=== PATIENT | male | born 1955 | race Caucasian/White ===

== ENCOUNTER 2017-01-19 20:26 | Emergency (ER) | payer OTHER ==
[2017-01-19] MEDS ORDERED: Sodium Chloride 0.9% 1000 ML 1,000 ML IV SCH (21:15)
--- NOTE | 2017-01-19 21:18 | ERPHSYRPT ---
- History of Present Illness Time Seen by Provider: 01/19/17 21:00 Source: patient Exam Limitations: clinical condition Patient Subjective Stated Complaint: pt states he has been having palpitations for approx 3-4 hours. denies chest pain, states he did have some pain in his lt neck and wrist- states pain was similar to when he had his heart attack in 2014 Triage Nursing Assessment: pt alert and oriented, asnswers questions approp. respirations nonlabored with lungs cta. pt ambulatory with steady gait noted. heart rate 65 sinus arrhythmia on monitor. Physician History: PATIENT WITH A HISTORY OF HYPERTENSION, ASTHMA AND ARRHYTHMIA, COMPLAINS OF PALPITATIONS TODAY. DENIES DIZZINESS, DYSPNEA, OR CHEST PAIN. HAS HAD A RECENT HOILTER MONITOR FOR 28 DAY. Timing/Duration: today Activities at Onset: none Quality: other (DENIES PAIN) Chest Pain Radiation: no radiation Severity of Pain-Max: none Severity of Pain-Current: none Modifying Factors: Improves With: nothing Nitro Today/Relief: no nitro taken today Aspirin Treatment Today: no aspirin today Associated Symptoms: denies symptoms Prior Chest Pain/Cardiac Workup: cardiac cath Allergies/Adverse Reactions: No Known Drug Allergies Allergy (Verified 01/19/17 20:48) Home Medications: Budesonide/Formoterol Fumarate [Symbicort 160-4.5 Mcg Inhaler] 01/19/17 [ History] Isosorbide Mononitrate 30 mg [Imdur 30 MG] 30 mg PO DAILY 01/19/17 [History ] Lisinopril 5 mg [Zestril 5 MG] 2.5 mg PO DAILY 01/19/17 [History] Lorazepam 2 mg PO HS PRN PRN 01/19/17 [History] Rosuvastatin Calcium 5 mg PO DAILY 01/19/17 [History] Hx Tetanus, Diphtheria Vaccination/Date Given: Yes Hx Influenza Vaccination/Date Given: No Hx Pneumococcal Vaccination/Date Given: No Immunizations Up to Date: Yes - Review of Systems Constitutional: No Fever, No Chills Eyes: No Symptoms Ears, Nose, & Throat: No Symptoms Respiratory: No Symptoms, No Cough, No Dyspnea Cardiac: Palpitations, No Chest Pain, No Edema, No Syncope Abdominal/Gastrointestinal: No Abdominal Pain, No Nausea, No Vomiting, No Diarrhea Genitourinary Symptoms: No Symptoms, No Dysuria Musculoskeletal: No Symptoms, No Back Pain, No Neck Pain Skin: No Symptoms, No Rash Neurological: No Dizziness, No Focal Weakness, No Sensory Changes Psychological: No Symptoms Endocrine: No Symptoms All Other Systems: Reviewed and Negative - Past Medical History Pertinent Past Medical History: Yes Neurological History: No Pertinent History ENT History: No Pertinent History Cardiac History: Coronary Artery Disease, Myocardial Infarction ([place]) Respiratory History: No Pertinent History Endocrine Medical History: No Pertinent History Musculoskeletal History: Arthritis GI Medical History: No Pertinent History History: No Pertinent History Psycho-Social History: No Pertinent History Male Reproductive Disorders: No Pertinent History - Past Surgical History Past Surgical History: Yes Neuro Surgical History: No Pertinent History Cardiac: Cardiac Catheterization Respiratory: No Pertinent History Gastrointestinal: No Pertinent History Genitourinary: No Pertinent History Musculoskeletal: No Pertinent History Other Surgical History: NOSE SURGERY,. heart cath, no stents - Social History Smoking Status: Current every day smoker How long have you smoked: 40 YEARS Exposure to second hand smoke: Yes Drug Use: none Patient Lives Alone: No - Nursing Vital Signs Nursing Vital Signs: Initial Vital Signs Temperature 97.9 F Temperature Source Oral Pulse Rate [] 66 Pulse Rate 59 Respiratory Rate 24 Blood Pressure [] 142/77 Pain Intensity 0 - Physical Exam SpO2: 97 Oxygen Delivery: Room Air - Course EKG Interpreted by Me: RATE, Sinus Rhythm, NORMAL AXIS - Radiology Exams Chest X-ray Interpretation: Interpreted by me (MILD CARDIOMEGALY) Ordered Tests: Active Orders 24 hr Category Date Time Status Oxygen-ED Only NASAL CANNULA 2 lpm Care 01/19/17 21:11 Active CHEST 1 VIEW (PORTABLE) Stat Exams 01/19/17 21:12 Taken CBC W DIFF Stat Lab 01/19/17 21:00 Completed CMP Stat Lab 01/19/17 21:00 Completed MAGNESIUM Stat Lab 01/19/17 21:00 Completed PROTIME WITH INR Stat Lab 01/19/17 21:00 Completed TROPONIN Q3H Lab 01/19/17 21:00 Completed TROPONIN Q3H Lab 01/20/17 00:15 Ordered TROPONIN Q3H Lab 01/20/17 03:15 Ordered TROPONIN Q3H Lab 01/20/17 06:15 Ordered TROPONIN Q3H Lab 01/20/17 09:15 Ordered Holter Monitor ONCE RT 01/19/17 23:07 Active Medication Summary Generic Name Dose Route Start Last Admin Trade Name Freq PRN Reason Stop Dose Admin Sodium Chloride 1,000 mls @ 100 mls/hr 01/19/17 21:15 01/19/17 21:21 Sodium Chloride 0.9% 1000 Ml IV 02/18/17 21:14 100 mls/hr .Q10H PRISCILLA Administration Lab/Rad Data: Laboratory Result Diagrams 01/19/17 21:00 01/19/17 21:00 Laboratory Results 01/19/17 01/19/17 01/19/17 Range/Units 21:00 21:00 21:00 WBC (4.0-10.5) K/mm3 RBC (4.1-5.6) M/mm3 Hgb (12.5-18.0) gm/dl Hct (42-50) % MCV (78-100) fl MCH (26-32) pg MCHC (32-36) g/dl RDW (11.5-14.0) % Plt Count (150-450) K/mm3 MPV (6-9.5) fl Gran % (36.0-66.0) % Lymphocytes % (24.0-44.0) % Monocytes % (0.0-12.0) % Eosinophils % (0.00-5.0) % Basophils % (0.0-0.4) % Basophils # (0-0.4) INR 0.93 (0.8-3.0) Sodium (136-145) mEq/L Potassium (3.5-5.1) mEq/L Chloride (98-107) mEq/L Carbon Dioxide (21-32) mEq/L Anion Gap (5-15) MEQ/L BUN (9-20) mg/dL Creatinine (0.55-1.30) mg/dl Estimated GFR ML/MIN Glucose (70-110) MG/DL Calcium (8.5-10.1) mg/dL Magnesium 2.0 (1.8-2.4) mg/dL Total Bilirubin (0.2-1.0) mg/dL AST (15-37) U/L ALT (12-78) U/L Alkaline Phosphatase (46-116) U/L Troponin I < 0.017 (0.000-0.056) ng/ml Serum Total Protein (6.4-8.2) gm/dL Albumin (3.4-5.0) g/dL 01/19/17 01/19/17 Range/Units 21:00 21:00 WBC 7.4 (4.0-10.5) K/mm3 RBC 4.37 (4.1-5.6) M/mm3 Hgb 13.4 (12.5-18.0) gm/dl Hct 39.6 L (42-50) % MCV 90.6 (78-100) fl MCH 30.7 (26-32) pg MCHC 33.8 (32-36) g/dl RDW 13.8 (11.5-14.0) % Plt Count 256 (150-450) K/mm3 MPV 9.8 H (6-9.5) fl Gran % 36.0 (36.0-66.0) % Lymphocytes % 53.6 H (24.0-44.0) % Monocytes % 7.6 (0.0-12.0) % Eosinophils % 2.0 (0.00-5.0) % Basophils % 0.8 (0.0-0.4) % Basophils # 0.06 (0-0.4) INR (0.8-3.0) Sodium 140 (136-145) mEq/L Potassium 3.7 (3.5-5.1) mEq/L Chloride 104 (98-107) mEq/L Carbon Dioxide 26.5 (21-32) mEq/L Anion Gap 13.0 (5-15) MEQ/L BUN 11 (9-20) mg/dL Creatinine 1.22 (0.55-1.30) mg/dl Estimated GFR > 60 ML/MIN Glucose 108 (70-110) MG/DL Calcium 9.3 (8.5-10.1) mg/dL Magnesium (1.8-2.4) mg/dL Total Bilirubin 0.30 (0.2-1.0) mg/dL AST 12 L (15-37) U/L ALT 18 (12-78) U/L Alkaline Phosphatase 98 (46-116) U/L Troponin I (0.000-0.056) ng/ml Serum Total Protein 6.6 (6.4-8.2) gm/dL Albumin 3.8 (3.4-5.0) g/dL - Progress Progress Note: 01/19/17 22:20 THERE WAS NO EVIDENCE OF ECTOPY ON MONITOR 01/20/17 00:00PATIENT IS BEING PLACED WITH 48HOURS HOILTER MONITOR Counseled pt/family regarding: lab results, diagnosis, need for follow-up - Departure Time of Disposition: 23:58 Departure Disposition: Home Clinical Impression: PALPITATIONS Condition: Stable Critical Care Time: No Critical Care Time(excluding separately billable procedures): 30-74 minutes Referrals: SKY PADGETT MD [Primary Care Provider] - Additional Instructions: MAINTAIN HOILTER MONITOR FOR 48 HOURS THEN RETURN TO RESPIRATORY THERAPY DEPARTMENT. CONSULT YOUR HUMAN RESOURCES FILE CLERK TOMORROW FOR APPOINTMENT.
[2017-01-19] MEDS ORDERED: Sodium Chloride 0.9% 1000 ML 1,000 ML ONE (21:20)
[2017-01-19 21:22] LABS: BASOPHIL % 0.8 % (0.0-0.4); Lymphocytes % 53.6 % (24.0-44.0); Mean Cell Volume 90.6 fl (78-100); Mean Corpuscular Hemoglobin 30.7 pg (26-32); Mean Platelet Volume 9.8 fl (6-9.5); Monocytes % 7.6 % (0.0-12.0); Platelet Count 256 K/mm3 (150-450); Red Blood Count 4.37 M/mm3 (4.1-5.6); Red Cell Distribution Width 13.8 % (11.5-14.0); White Blood Count 7.4 K/mm3 (4.0-10.5)
[2017-01-19 21:37] LABS: INR 0.93 (0.8-3.0); PROTIME 10.5 SECONDS (8.83-12.87)
[2017-01-19 21:52] LABS: ALBUMIN 3.8 g/dL (3.4-5.0); ALKALINE PHOSPHATASE 98 U/L (46-116); BLOOD UREA NITROGEN 11 mg/dL (9-20); CHLORIDE 104 mEq/L (98-107); Carbon Dioxide 26.5 mEq/L (21-32); Glucose 108 MG/DL (70-110); Potassium 3.7 mEq/L (3.5-5.1); SGOT/AST 12 U/L (15-37); SGPT/ALT 18 U/L (12-78); SODIUM 140 mEq/L (136-145); Total Protein 6.6 gm/dL (6.4-8.2)
[2017-01-20 00:01] VITALS: O2SAT 97
[2017-01-20 00:08] VITALS: BP 149/79; PULSE 60
--- NOTE | 2017-01-20 09:48 | XRAY ---
Indication: Palpitations. Comparison: February 20, 2016. Portable chest again demonstrates normal heart and lungs. Bony thorax intact again with degenerative changes.
--- NOTE | 2017-01-23 15:36 | HOLTER ---
DATE OF STUDY: 01/20/2017 STUDY PERFORMED: 24 hour Holter monitor. INDICATION: Palpitation. The basic rhythm is normal sinus rhythm with heart rates varying from 36 to 148 beats/minute with average heart rate 62. There were frequent PVC's. This shows mostly unifocal and monomorphic. There were occasional PAC's. There were some short runs of paroxysmal atrial tachycardia. There were also 11 episodes of pauses the longest lasting about 2.4 seconds. There was no sustained tachyarrhythmia.
== END 2017-01-20 00:08 | disposition home or self-care (01) ==
LOC: ED 20:26
DX: R00.2 Palpitations (principal); I10 Essential (primary) hypertension; I25.10 Atherosclerotic heart disease of native coronary artery without angina pectoris; I25.2 Old myocardial infarction; Z79.899 Other long term (current) drug therapy
CPT/HCPCS: 36000; 36415; 71010; 80053; 83735; 84484; 85025; 85610; 93225; 96360; 96361; 99284

== ENCOUNTER 2020-01-06 10:02 | Emergency (ER) | payer MEDICARE, OTHER ==
[2020-01-06 10:51] LABS: Absolute Neutrophil Ct (ANC) 3.31 (1.4-6.9); BASOPHIL % 0.6 % (0.0-0.4); Basophil (Absolute #) 0.04 (0-0.4); Eosinophil % 1.1 % (0.00-5.0); Eosinophil (Absolute #) 0.07 (0-0.5); Hematocrit 41.4 % (42-50); Hemoglobin 13.7 gm/dl (12.5-18.0); Lymphocyte (Absolute #) 2.42 (1.0-4.6); Lymphocytes % 38.7 % (24.0-44.0); Mean Cell Volume 94.3 fl (78-100); Mean Corpuscular Hemoglobin 31.2 pg (26-32); Mean Corpuscular Hgb Concent. 33.1 g/dl (32-36); Mean Platelet Volume 9.4 fl (7.5-11.0); Monocyte (Absolute #) 0.42 (0.0-1.3); Monocytes % 6.7 % (0.0-12.0); Neutrophil % 52.9 % (36.0-66.0); Platelet Count 259 K/mm3 (150-450); Red Blood Count 4.39 M/mm3 (4.1-5.6); White Blood Count 6.3 K/mm3 (4.0-10.5)
[2020-01-06 10:56] LABS: ALBUMIN 4.4 g/dL (3.5-5.0); ALKALINE PHOSPHATASE 74 U/L (38-126); ANION GAP 11.7 MEQ/L (5-15); BLOOD UREA NITROGEN 15 mg/dL (9-20); CHLORIDE 108 mmol/L (98-107); Calcium 9.4 mg/dL (8.4-10.2); Carbon Dioxide 23 mmol/L (22-30); Creatinine 1 1.07 mg/dL (0.66-1.25); Glucose 112 mg/dL (74-106); MAGNESIUM 2.1 mg/dL (1.6-2.3); Potassium 4.3 mmol/L (3.5-5.1); SGOT/AST 16 U/L (17-59); SGPT/ALT 13 U/L (0-50); SODIUM 138 mmol/L (137-145); Total Protein 7.1 g/dL (6.3-8.2)
[2020-01-06 11:12] VITALS: BP 124/73; PULSE 72; O2SAT 97
--- NOTE | 2020-01-06 13:19 | ERPHSYRPT ---
- History of Present Illness Time Seen by Provider: 01/06/20 10:15 Historian: patient Exam Limitations: no limitations Patient Subjective Stated Complaint: palpitations Triage Nursing Assessment: pt to ED c/o palpitations x 1-2 weeks intermittently. pt denies CP or SOB at this time. no NVD. heart sounds clear and regular. lung sounds clear. pt has pacemaker and states "It just feels like my heart skips a beat." Physician History: She complains of palpitations for 2 weeks he has seen his soft hat binder he was told that he was having PVCs. He denies any pain although he does occasionally get lightheaded. He has a pacemaker in place. Timing/Duration: week(s) (2) Activities at Onset: none Chest Pain Radiation: no radiation Severity of Pain-Max: none Severity of Pain-Current: none Modifying Factors: Improves With: nothing Nitro Today/Relief: no nitro taken today Aspirin Treatment Today: no aspirin today Allergies/Adverse Reactions: No Known Drug Allergies Allergy (Verified 01/19/17 20:48) Home Medications: Budesonide/Formoterol Fumarate [Symbicort 160-4.5 Mcg Inhaler] 01/19/17 [History] Isosorbide Mononitrate 30 mg [Imdur 30 MG] 30 mg PO DAILY 01/19/17 [History] Lisinopril 5 mg [Zestril 5 MG] 2.5 mg PO DAILY 01/19/17 [History] Lorazepam 2 mg PO HS PRN PRN 01/19/17 [History] Rosuvastatin Calcium 5 mg PO DAILY 01/19/17 [History] Hx Tetanus, Diphtheria Vaccination/Date Given: No Hx Influenza Vaccination/Date Given: Yes Hx Pneumococcal Vaccination/Date Given: No Travel Risk - International Travel Have you traveled outside of the country in past 3 weeks: No - Coronavirus Screening Are you exhibiting any of the following symptoms?: No Close contact with a COVID-19 positive Pt in past 14-21 Days: No - Review of Systems Constitutional: No Fever, No Chills Eyes: No Symptoms Ears, Nose, & Throat: No Symptoms Respiratory: No Cough, No Dyspnea Cardiac: Palpitations, No Chest Pain, No Edema, No Syncope Abdominal/Gastrointestinal: No Abdominal Pain, No Nausea, No Vomiting, No Diarrhea Genitourinary Symptoms: No Dysuria Musculoskeletal: No Back Pain, No Neck Pain Skin: No Rash Neurological: No Dizziness, No Focal Weakness, No Sensory Changes Psychological: No Symptoms Endocrine: No Symptoms All Other Systems: Reviewed and Negative - Past Medical History Pertinent Past Medical History: Yes Neurological History: No Pertinent History ENT History: No Pertinent History Cardiac History: Coronary Artery Disease, Hypertension, Myocardial Infarction ([place]) Respiratory History: No Pertinent History Endocrine Medical History: No Pertinent History Musculoskeletal History: Arthritis GI Medical History: No Pertinent History History: No Pertinent History Psycho-Social History: No Pertinent History Male Reproductive Disorders: No Pertinent History Other Medical History: pacemaker, 2 blockages in heart - Past Surgical History Past Surgical History: Yes Neuro Surgical History: No Pertinent History Cardiac: Cardiac Catheterization Respiratory: No Pertinent History Gastrointestinal: No Pertinent History Genitourinary: No Pertinent History Musculoskeletal: No Pertinent History Other Surgical History: NOSE SURGERY,. heart cath, no stents - Social History Smoking Status: Current every day smoker How long have you smoked: 40 YEARS Exposure to second hand smoke: Yes Drug Use: none Patient Lives Alone: No - Nursing Vital Signs Nursing Vital Signs: Initial Vital Signs Temperature 98.5 F 01/06/20 10:04 Pulse Rate 70 01/06/20 10:04 Respiratory Rate 16 01/06/20 10:04 Blood Pressure 166/87 01/06/20 10:04 O2 Sat by Pulse Oximetry 100 01/06/20 10:04 Pain Scale Pain Intensity 0 - Physical Exam General Appearance: no apparent distress, alert Eye Exam: PERRL/EOMI, eyes nml inspection Ears, Nose, Throat Exam: normal ENT inspection, moist mucous membranes Neck Exam: normal inspection, non-tender, supple, full range of motion Respiratory Exam: normal breath sounds, lungs clear, No respiratory distress Cardiovascular Exam: normal heart sounds, irregular Gastrointestinal/Abdomen Exam: soft, No tenderness, No mass Back Exam: normal inspection, No CVA tenderness, No vertebral tenderness Extremity Exam: normal inspection, normal range of motion Neurologic Exam: alert, oriented x 3, cooperative, normal mood/affect, sensation nml, No motor deficits Skin Exam: normal color, warm, dry SpO2: 97 - Course Nursing assessment & vital signs reviewed: Yes EKG Interpreted by Me: RATE Ordered Tests: Active Orders 24 hr Category Date Time Status CBC W DIFF Stat Lab 07/03/20 10:30 Completed CMP Stat Lab 01/06/20 10:30 Completed Lactic Acid Stat Lab 01/06/20 10:59 Completed MAGNESIUM Stat Lab 01/06/20 10:30 Completed TROPONIN Q3H Lab 01/06/20 10:30 Completed Lab/Rad Data: Laboratory Result Diagrams 01/06/20 10:30 01/06/20 10:30 Laboratory Results 01/06/20 01/06/20 01/06/20 Range/Units 10:59 10:30 10:30 WBC (4.0-10.5) K/mm3 RBC (4.1-5.6) M/mm3 Hgb (12.5-18.0) gm/dl Hct (42-50) % MCV (78-100) fl MCH (26-32) pg MCHC (32-36) g/dl RDW (11.5-14.0) % Plt Count (150-450) K/mm3 MPV (7.5-11.0) fl Gran % (36.0-66.0) % Eos # (Auto) (0-0.5) Absolute Lymphs (auto) (1.0-4.6) Absolute Monos (auto) (0.0-1.3) Lymphocytes % (24.0-44.0) % Monocytes % (0.0-12.0) % Eosinophils % (0.00-5.0) % Basophils % (0.0-0.4) % Absolute Granulocytes (1.4-6.9) Basophils # (0-0.4) Sodium 138 (137-145) mmol/L Potassium 4.3 (3.5-5.1) mmol/L Chloride 108 H (98-107) mmol/L Carbon Dioxide 23 (22-30) mmol/L Anion Gap 11.7 (5-15) MEQ/L BUN 15 (9-20) mg/dL Creatinine 1.07 (0.66-1.25) mg/dL Estimated GFR > 60.0 ML/MIN Glucose 112 H (74-106) mg/dL Lactic Acid 1.1 (0.4-2.0) Calcium 9.4 (8.4-10.2) mg/dL Magnesium 2.1 (1.6-2.3) mg/dL Total Bilirubin 0.80 (0.2-1.3) mg/dL AST 16 L (17-59) U/L ALT 13 (0-50) U/L Alkaline Phosphatase 74 (38-126) U/L Troponin I < 0.012 (0.000-0.034) ng/mL Serum Total Protein 7.1 (6.3-8.2) g/dL Albumin 4.4 (3.5-5.0) g/dL 01/06/20 Range/Units 10:30 WBC 6.3 (4.0-10.5) K/mm3 RBC 4.39 (4.1-5.6) M/mm3 Hgb 13.7 (12.5-18.0) gm/dl Hct 41.4 L (42-50) % MCV 94.3 (78-100) fl MCH 31.2 (26-32) pg MCHC 33.1 (32-36) g/dl RDW 13.0 (11.5-14.0) % Plt Count 259 (150-450) K/mm3 MPV 9.4 (7.5-11.0) fl Gran % 52.9 (36.0-66.0) % Eos # (Auto) 0.07 (0-0.5) Absolute Lymphs (auto) 2.42 (1.0-4.6) Absolute Monos (auto) 0.42 (0.0-1.3) Lymphocytes % 38.7 (24.0-44.0) % Monocytes % 6.7 (0.0-12.0) % Eosinophils % 1.1 (0.00-5.0) % Basophils % 0.6 (0.0-0.4) % Absolute Granulocytes 3.31 (1.4-6.9) Basophils # 0.04 (0-0.4) Sodium (137-145) mmol/L Potassium (3.5-5.1) mmol/L Chloride (98-107) mmol/L Carbon Dioxide (22-30) mmol/L Anion Gap (5-15) MEQ/L BUN (9-20) mg/dL Creatinine (0.66-1.25) mg/dL Estimated GFR ML/MIN Glucose (74-106) mg/dL Lactic Acid (0.4-2.0) Calcium (8.4-10.2) mg/dL Magnesium (1.6-2.3) mg/dL Total Bilirubin (0.2-1.3) mg/dL AST (17-59) U/L ALT (0-50) U/L Alkaline Phosphatase (38-126) U/L Troponin I (0.000-0.034) ng/mL Serum Total Protein (6.3-8.2) g/dL Albumin (3.5-5.0) g/dL - Departure Departure Disposition: Home Clinical Impression: Ventricular ectopy Condition: Stable Critical Care Time: No Referrals: SKY PADGETT MD [Primary Care Provider] - Instructions: Arrhythmias (DC)
== END 2020-01-06 14:07 | disposition home or self-care (01) ==
LOC: ED 10:02
DX: I49.3 Ventricular premature depolarization (principal); Z95.0 Presence of cardiac pacemaker; I25.10 Atherosclerotic heart disease of native coronary artery without angina pectoris; I10 Essential (primary) hypertension; I25.2 Old myocardial infarction; M19.90 Unspecified osteoarthritis, unspecified site
CPT/HCPCS: 36415; 80053; 83605; 83735; 84484; 85025; 99283

== ENCOUNTER 2025-04-10 10:10 | Emergency (ER) | payer MEDICARE, OTHER ==
[2025-04-10 10:15] VITALS: TEMP 97.8
--- NOTE | 2025-04-10 10:23 | ERPHSYRPT ---
- History of Present Illness Time Seen by Provider: 04/10/25 10:21 Historian: patient Exam Limitations: no limitations Physician History: Patient presents with a 2-day history of left-sided chest pain that radiates to the center of his chest. Sharp stabbing intermittent pain that is not on exertional. He denies shortness of breath, diaphoresis, nausea, vomiting, abdominal pain or swelling with the pain. He has a pacemaker for sick sinus syndrome. He does endorse smoking and has history of high blood pressure. Nitro Today/Relief: 0.4 mg x 1, provided by ED Aspirin Treatment Today: 81 mg x 4, provided at home Allergies/Adverse Reactions: No Known Drug Allergies Allergy (Verified 02/24/25 06:02) Home Medications: Budesonide/Formoterol Fumarate [Symbicort 160-4.5 Mcg Inhaler] 2 puff PO BID 01/19/17 [History] LORazepam [Lorazepam] 2 mg PO HS PRN PRN 01/19/17 [History] Rosuvastatin Calcium 5 mg PO DAILY 01/19/17 [History] Amlodipine Besylate 5 mg [Norvasc 5 mg] 1 tab PO DAILY 02/01/25 [History] Aspirin EC 81 mg [Ecotrin 81 mg] 1 tab PO DAILY 02/01/25 [History] Losartan Potassium 50 mg [Cozaar 50 MG] 1 tab PO DAILY 02/01/25 [History] Metoprolol Tartrate 100 mg PO BID 02/01/25 [History] Hx Tetanus, Diphtheria Vaccination/Date Given: No Hx Influenza Vaccination/Date Given: Yes Hx Pneumococcal Vaccination/Date Given: No Travel Risk - Emerging Infectious Disease Are you exhibiting symptoms associated with any current EIDs: No - Review of Systems All Other Systems: Reviewed and Negative - Past Medical History Pertinent Past Medical History: Yes Neurological History: No Pertinent History ENT History: No Pertinent History Cardiac History: Coronary Artery Disease, Hypertension, Myocardial Infarction ([place]) Respiratory History: No Pertinent History Endocrine Medical History: No Pertinent History Musculoskeletal History: Arthritis GI Medical History: No Pertinent History History: No Pertinent History Psycho-Social History: No Pertinent History Male Reproductive Disorders: No Pertinent History Other Medical History: pacemaker, 2 blockages in heart - Past Surgical History Cardiac: Cardiac Catheterization - Social History Drug Use: none - Nursing Vital Signs Nursing Vital Signs: Initial Vital Signs Temperature 97.8 F 04/10/25 10:11 Pulse Rate 71 04/10/25 10:11 Respiratory Rate 18 04/10/25 10:11 Blood Pressure 150/129 04/10/25 10:11 O2 Sat by Pulse Oximetry 100 04/10/25 10:11 Pain Scale Pain Intensity 4 - Physical Exam General Appearance: no apparent distress Ears, Nose, Throat Exam: normal ENT inspection Neck Exam: normal inspection, supple, full range of motion Respiratory Exam: normal breath sounds, chest tenderness (left chest wll), lungs clear, airway intact, No respiratory distress Cardiovascular Exam: regular rate/rhythm, normal heart sounds, capillary refill <2 sec, No edema Gastrointestinal/Abdomen Exam: soft, No tenderness, No distention, No guarding, No rebound Neurologic Exam: alert, oriented x 3, cooperative Skin Exam: normal color, warm, dry, No rash SpO2 Interpretation: normal SpO2: 100 O2 Delivery: Room Air - Course Nursing assessment & vital signs reviewed: Yes EKG Interpreted by Me: RATE (75), NORMAL AXIS, NORMAL ST-T, Other (atrial paced, DE 294) Ordered Tests: Active Orders 24 hr Category Date Time Status Criminal Justice Department Chair STAT Care 04/10/25 10:24 Active EKG-ER Only STAT Care 04/10/25 10:24 Active IV Insertion STAT Care 04/10/25 10:24 Active CTA CHEST W AND/OR WO [CT] Stat Exams 04/10/25 10:29 Completed CBC W DIFF Stat Lab 04/10/25 10:30 Completed CMP Stat Lab 04/10/25 10:30 Completed MAGNESIUM Stat Lab 04/10/25 10:30 Completed PROCALCITONIN Stat Lab 04/10/25 10:30 Completed TROPONIN Q4H Lab 04/10/25 10:30 Completed TROPONIN Stat Lab 04/10/25 13:20 Completed TSH, 3RD Generation Stat Lab 04/10/25 10:30 Completed Urine Triage Profile Stat Lab 04/10/25 11:31 Completed Medication Summary Discontinued Medications Generic Name Dose Route Start Last Admin Trade Name Freq PRN Reason Stop Dose Admin Esmolol HCl 20 mg 04/10/25 10:35 04/10/25 14:00 Esmolol Hcl 10 Mg/Ml Vial IV 04/10/25 10:36 Not Given STAT ONE Metoprolol Tartrate 2.5 mg 04/10/25 10:30 04/10/25 10:32 Metoprolol Tartrate 5 Mg/5 Ml Vial IV 04/10/25 10:31 Not Given STAT ONE Nitroglycerin 0.4 mg 04/10/25 10:24 04/10/25 10:32 Nitroglycerin 0.4 Mg (Ed) 0.4 Mg Tab.Subl SL 04/10/25 10:25 Not Given STAT ONE Lab/Rad Data: Laboratory Result Diagrams 04/10/25 10:30 04/10/25 10:30 Laboratory Results 04/10/25 04/10/25 04/10/25 Range/Units 13:20 11:31 10:30 WBC (4.23-9.07) x10^3/uL RBC (4.63-6.08) x10^6/uL Hgb (13.7-17.5) g/dL Hct (40.1-51.0) % MCV (79.0-92.2) fL MCH (25.7-32.2) pg MCHC (32.3-36.5) g/dL RDW (11.6-14.4) % Plt Count (163-337) x10^3/uL MPV (9.4-12.4) fL Gran % (34.0-67.9) % Immature Gran % (Auto) (0.001-0.429) % Nucleat RBC Rel Count (0.00-0.2) % Eos # (Auto) (0.04-0.54) x10^3/uL Immature Gran # (Auto) (0.001-0.031) x10^3u/L Absolute Lymphs (auto) (1.32-3.57) x10^3/uL Absolute Monos (auto) (0.30-0.82) x10^3/uL Absolute Nucleated RBC (0.00-0.012) x10^3u/L Lymphocytes % (21.8-53.1) % Monocytes % (5.3-12.2) % Eosinophils % (0.8-7.0) % Basophils % (0.2-1.2) % Absolute Granulocytes (1.78-5.38) x10^3/uL Basophils # (0.01-0.08) x10^3/uL Sodium (135-145) mmol/L Potassium (3.5-5.1) mmol/L Chloride (98-107) mmol/L Carbon Dioxide (22-30) mmol/L Anion Gap (5-15) MEQ/L BUN (9-20) mg/dL Creatinine (0.66-1.25) mg/dL Estimated GFR ML/MIN Glucose (74-106) mg/dL Calcium (8.4-10.2) mg/dL Magnesium (1.6-2.3) mg/dL Total Bilirubin (0.2-1.3) mg/dL AST (17-59) U/L ALT (0-50) U/L Alkaline Phosphatase (38-126) U/L Troponin I < 0.012 (0.000-0.033) ng/mL Serum Total Protein (6.3-8.2) g/dL Albumin (3.5-5.0) g/dL Procalcitonin (0.030-0.080) ng/mL Free T4 1.22 (0.78-2.19) ng/dL TSH 3rd Generation (0.470-4.680) mIU/L Urine Opiates Level NEGATIVE (NEGATIVE) Ur Methadone NEGATIVE (NEGATIVE) Urine Barbiturates NEGATIVE (NEGATIVE) Ur Phencyclidine (PCP) NEGATIVE (NEGATIVE) Urine Amphetamine NEGATIVE (NEGATIVE) U Benzodiazepine Level NEGATIVE (NEGATIVE) Urine Cocaine NEGATIVE (NEGATIVE) Urine Marijuana (THC) NEGATIVE (NEGATIVE) 04/10/25 04/10/25 04/10/25 Range/Units 10:30 10:30 10:30 WBC 7.0 (4.23-9.07) x10^3/uL RBC 4.79 (4.63-6.08) x10^6/uL Hgb 14.9 (13.7-17.5) g/dL Hct 44.3 (40.1-51.0) % MCV 92.5 H (79.0-92.2) fL MCH 31.1 (25.7-32.2) pg MCHC 33.6 (32.3-36.5) g/dL RDW 12.9 (11.6-14.4) % Plt Count 242 (163-337) x10^3/uL MPV 8.9 L (9.4-12.4) fL Gran % 51.2 (34.0-67.9) % Immature Gran % (Auto) 0.3 (0.001-0.429) % Nucleat RBC Rel Count 0.0 (0.00-0.2) % Eos # (Auto) 0.05 (0.04-0.54) x10^3/uL Immature Gran # (Auto) 0.02 (0.001-0.031) x10^3u/L Absolute Lymphs (auto) 2.72 (1.32-3.57) x10^3/uL Absolute Monos (auto) 0.57 (0.30-0.82) x10^3/uL Absolute Nucleated RBC 0.00 (0.00-0.012) x10^3u/L Lymphocytes % 38.6 (21.8-53.1) % Monocytes % 8.1 (5.3-12.2) % Eosinophils % 0.7 L (0.8-7.0) % Basophils % 1.1 (0.2-1.2) % Absolute Granulocytes 3.60 (1.78-5.38) x10^3/uL Basophils # 0.08 (0.01-0.08) x10^3/uL Sodium 134 L (135-145) mmol/L Potassium 4.2 (3.5-5.1) mmol/L Chloride 103 (98-107) mmol/L Carbon Dioxide 23 (22-30) mmol/L Anion Gap 11.7 (5-15) MEQ/L BUN 17 (9-20) mg/dL Creatinine 1.10 (0.66-1.25) mg/dL Estimated GFR 71.8 ML/MIN Glucose 96 (74-106) mg/dL Calcium 9.5 (8.4-10.2) mg/dL Magnesium 2.2 (1.6-2.3) mg/dL Total Bilirubin 0.80 (0.2-1.3) mg/dL AST 23 (17-59) U/L ALT 17 (0-50) U/L Alkaline Phosphatase 93 (38-126) U/L Troponin I < 0.012 (0.000-0.033) ng/mL Serum Total Protein 7.3 (6.3-8.2) g/dL Albumin 4.6 (3.5-5.0) g/dL Procalcitonin 0.047 (0.030-0.080) ng/mL Free T4 (0.78-2.19) ng/dL TSH 3rd Generation 1.419 (0.470-4.680) mIU/L Urine Opiates Level (NEGATIVE) Ur Methadone (NEGATIVE) Urine Barbiturates (NEGATIVE) Ur Phencyclidine (PCP) (NEGATIVE) Urine Amphetamine (NEGATIVE) U Benzodiazepine Level (NEGATIVE) Urine Cocaine (NEGATIVE) Urine Marijuana (THC) (NEGATIVE) - Progress Progress: improved Air Movement: good Progress Note: This patient presents with chest pain, with symptoms suggestive of noncardiac chest pain. History without high risk features (e.g., not substernal, no exertional component, not relieved with rest ). Exam without evidence of volume overload. EKG without signs of active ischemia. HEART score: 3. Given the timing of pain to ER presentation, plan to send single troponin to evaluate for NSTEMI. Presentation not consistent with acute PE (PERC negative), pneumothorax, thoracic arotic dissection, cardiac effusion or tamponade. Plan: labs, troponin, EKG, CXR, ASA taken at home, pain control, serial reassessment 04/10/25 14:07 Patient had negative troponin x 2. CTA chest ordered to rule out dissection evaluate aneurysm. No signs of dissection noted. No evidence of aneurysm that was reported. Remainder of labs unremarkable. Patient has left anterior chest wall pain consistent with costochondritis. 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 Blood Culture(s) Obtained: No Antibiotics given: No Counseled pt/family regarding: lab results, diagnosis, need for follow-up, rad results Medical Desision Making - Diagnostic Testing Diagnostic test were ordered, analyzed, and reviewed by me: Yes Radiological Interpretation: Interpreted by me - Risk of complications The pt has a mod risk of morbidity or mortality based on: Need for prescription drug management - Departure Departure Disposition: Home Clinical Impression: Chest pain, Costochondritis Condition: Stable Critical Care Time: No Referrals: SKY PADGETT MD [Primary Care Provider, INTERNAL MEDICINE] - Follow up/PCP as directed Instructions: Chest Pain (DC)
[2025-04-10 10:32] VITALS: PULSE 70
[2025-04-10] MEDS: Nitrostat 0.4 MG (ED) SL ONE (10:32)
[2025-04-10] MEDS: LOPRESSOR INJECTION IV ONE (10:32)
[2025-04-10 10:37] LABS: BASOPHIL % 1.1 % (0.2-1.2); Basophil (Absolute #) 0.08 x10^3/uL (0.01-0.08); Eosinophil (Absolute #) 0.05 x10^3/uL (0.04-0.54); Hematocrit 44.3 % (40.1-51.0); Hemoglobin 14.9 g/dL (13.7-17.5); IMMATURE GRAN # 0.02 x10^3u/L (0.001-0.031); IMMATURE GRAN % 0.3 % (0.001-0.429); Lymphocyte (Absolute #) 2.72 x10^3/uL (1.32-3.57); Mean Corpuscular Hemoglobin 31.1 pg (25.7-32.2); Mean Corpuscular Hgb Concent. 33.6 g/dL (32.3-36.5); Monocyte (Absolute #) 0.57 x10^3/uL (0.30-0.82); NUCLEATED RBC # 0.00 x10^3u/L (0.00-0.012); NUCLEATED RBC % 0.0 % (0.00-0.2); Platelet Count 242 x10^3/uL (163-337); Red Blood Count 4.79 x10^6/uL (4.63-6.08); White Blood Count 7.0 x10^3/uL (4.23-9.07)
[2025-04-10 11:23] LABS: Calcium 9.5 mg/dL (8.4-10.2); Carbon Dioxide 23.0 mmol/L (22-30); Creatinine 1 1.1 mg/dL (0.66-1.25); EST GLOMERULAR FILTRATION RATE 71.8 ML/MIN; Glucose 96.0 mg/dL (74-106); Potassium 4.2 mmol/L (3.5-5.1); SGOT/AST 23.0 U/L (17-59); SGPT/ALT 17.0 U/L (0-50); Total Protein 7.3 g/dL (6.3-8.2)
[2025-04-10 12:19] LABS: Amphetamine,Urine NEGATIVE (NEGATIVE); Barbiturate,Urine NEGATIVE (NEGATIVE); Benzodiazepine,Urine NEGATIVE (NEGATIVE); Cocaine,Urine NEGATIVE (NEGATIVE); Methadone,Urine NEGATIVE (NEGATIVE); Opiate,Urine NEGATIVE (NEGATIVE); PCP,Urine NEGATIVE (NEGATIVE); THC,Urine NEGATIVE (NEGATIVE)
--- NOTE | 2025-04-10 13:07 | XRAY ---
Indication: Left chest pain. Conventional contrast-enhanced CTA chest performed using 80 cc Isovue 370 contrast. 2D sagittal and coronal reformatted images obtained. Additional 3D reformatted images obtained using separate workstation. Comparison: None Thoracic aorta is minimally arteriosclerotic without aneurysm/dissection. Normal branching right brachiocephalic, left common carotid, and left subclavian arteries. Minimal calcifications origin right brachiocephalic and left common carotid arteries without critical stenosis or obstruction. Heart not enlarged with right dual lead pacemaker. A few tiny mediastinal and left hilar calcified nodes. No pathologic mediastinal/hilar lymphadenopathy. Small hiatal hernia. Lungs demonstrates mild pulmonary emphysema and minimal bilateral dependent atelectasis. No suspicious pulmonary mass/nodule, infiltrate, or effusion. Bony thorax intact with mild/moderate degenerative changes throughout spine. Limited upper abdomen demonstrates a few tiny hepatic/splenic calcified granulomas. Impression: 1. Minimal arteriosclerotic disease. Otherwise normal CTA chest. 2. Chronic findings including pulmonary emphysema, hiatal hernia, degenerative spondylosis, and old granulomatous disease.
[2025-04-10] MEDS: BREVIBLOC 100 MG/10 ML IV ONE (14:00)
[2025-04-10 14:05] VITALS: BP 161/80; RESP 15
[2025-04-10 14:10] VITALS: O2SAT 100
== END 2025-04-10 14:25 | disposition home or self-care (01) ==
LOC: ED 10:10
DX: M94.0 Chondrocostal junction syndrome [Tietze] (principal); R07.9 Chest pain, unspecified; I10 Essential (primary) hypertension; Z79.899 Other long term (current) drug therapy